=== PATIENT | female | born 1960 | race Caucasian/White ===

== ENCOUNTER 2016-08-27 19:16 | Emergency (ER) | payer BC, OTHER ==
--- NOTE | 2016-08-27 19:45 | EDM.PDOC ---
ED HISTORY OF PRESENT ILLNESS - General Chief Complaint: Cardiovascular Problem Stated Complaint: NAUSEA/HEART MISSING A BEAT Time Seen by Provider: 08/27/16 19:40 Source of Information: Reports: Patient, Family (friend) History Limitations: Reports: No limitations - History of Present Illness INITIAL COMMENTS - FREE TEXT/NARRATIVE: 56-year-old female presents the ED with nonspecific complaints of intermittent nausea and retrosternal chest pressure discomfort since mid afternoon today. The worse with walking. No worse with lying down. No associated burping belching or heartburn. She does have a history of GERD and uses Zantac usually 150 mg once daily. No right upper quadrant abdominal pain. Feels like her heart is skipping beats at times that should make her feel a bit dizzy and funny in the chest. No real worsening of shortness of breath. No cough or sputum production no fever or chills. No trouble swallowing.no recent changes to any medications. Symptom Onset Date: 08/27/16 Symptom Onset Time: 14:00 Timing/Duration: Reports: Hour(s):, Gradual onset, Intermittent, Waxing/waning Severity: mild Location, General: Reports: chest (lower chest and epigastrium.) Quality: Reports: Ache, Pressure (mild pressure), Other (feels like her heart is skipping beats at times.) Improves with: Reports: None Worsens with: Reports: None Context, General: Denies: Activity, Exercise, Lifting, Sick contact, Trauma, Other Associated Symptoms (General): Reports: chest pain, nausea/vomiting. 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 On diet. ) Gastrointestinal History: Reports: GERD (exam check 50 mg once daily.) Genitourinary History: Reports: Renal calculus - Past Surgical History Female Surgical History: Reports: Hysterectomy (ovaries were left in.) Social & Family History - Tobacco Use Smoking Status *Q: Current Every Day Smoker Years of Tobacco use: 30 Packs/Tins Daily: 1 - Alcohol Use Days Per Week of Alcohol Use: 0 - Recreational Drug Use Recreational Drug Use: No - Living Situation & Occupation Occupation: employed ED ROS GENERAL - Review of Systems Review Of Systems: See Below Constitutional: Reports: fatigue. Denies: fever, chills, malaise, weakness, decreased appetite, weight loss HEENT: Reports: No symptoms Respiratory: Reports: cough, sputum (get a minute produced is usually a little brownish in color. No hemoptysis). Denies: shortness of breath, wheezing, pleuritic chest pain Cardiovascular: Reports: Chest pain (lower retrosternal chest pressure discomfort.), Lightheadedness, Palpitations (as like her heart is skipping beats at times today.). Denies: Blood pressure problem, Claudication, Dyspnea on exertion, Edema (filling little dizzy lightheaded today.), Orthopnea Endocrine: Reports: no symptoms GI/Abdominal: Reports: No symptoms : Reports: no symptoms Musculoskeletal: Reports: no symptoms Skin: Reports: no symptoms Neurological: Reports: no symptoms Psychiatric: Reports: No symptoms, Other Immunologic: Reports: no symptoms ED EXAM, GENERAL - Physical Exam Exam: See Below Exam Limited By: No limitations General Appearance: alert, WD/WN, no apparent distress Eye Exam: bilateral eye: normal inspection (no jaundice) Throat/Mouth: Normal inspection, Normal lips, Normal teeth, Normal oropharynx Head: atraumatic, normocephalic Neck: normal inspection, supple, non-tender, full range of motion. No: carotid bruit, lymphadenopathy (L), thyromegaly Respiratory/Chest: no respiratory distress, lungs clear, normal breath sounds, no accessory muscle use, chest non-tender Cardiovascular: normal peripheral pulses, regular rate, rhythm, no edema, no gallop, no murmur, other (monitor reveals sinus rhythm at 78 per minute) Peripheral Pulses: 2+: posterior tibial (L), posterior tibial (R), dorsalis pedis (L), dorsalis pedis (R) GI/Abdominal: normal bowel sounds, no organomegaly, no mass, tender (slight tenderness in the epigastrium and just to the midline at the right costal margin. No true Iqbal's sign). No: distended, guarding, rigid, rebound Back Exam: normal inspection, full range of motion. No: CVA tenderness (L), CVA tenderness (R) Extremities: normal inspection, normal range of motion, non-tender, no pedal edema, normal capillary refill Neurological: alert, oriented, CN II-XII intact, normal cognition, normal gait Psychiatric: normal affect, normal mood Skin Exam: Warm, Dry, Intact, Normal color, No rash EKG INTERPRETATION EKG Date: 08/27/16 Time: 19:50 Rhythm: NSR Rate (beats/min): 74 (occasional PACs.) Endeavor: normal P-wave: enlarged (consider left atrial enlargement.) QRS: normal ST-T: other (mild ST segment depression in lead aVF only. There is a fairly diffuse repolarization pattern.) QT: prolonged (minimally prolonged) Course - Vital Signs Last Recorded V/S: Last Vital Signs Temp 35.7 C 08/27/16 19:31 Pulse 82 08/27/16 21:36 Resp 18 08/27/16 21:36 BP 133/57 L 08/27/16 21:36 Pulse Ox 96 08/27/16 21:36 - Orders/Labs/Meds Orders: Active Orders 24 hr Category Date Time Status EKG 12 Lead [EKG Documentation Completion] [RC] STAT Care 08/27/16 19:57 Active Chest 1V Frontal [CR] Stat Exams 08/27/16 20:09 Taken Labs: Laboratory Tests 08/27/16 08/27/16 08/27/16 Range/Units 20:00 20:21 20:21 WBC 7.47 (3.98-10.04) K/mm3 RBC 5.33 H (3.98-5.22) M/mm3 Hgb 14.2 (11.2-15.7) gm/L Hct 43.7 (34.1-44.9) % MCV 82.0 (79.4-94.8) fl MCH 26.6 (25.6-32.2) pg MCHC 32.5 (32.2-35.5) g/dl RDW Std Deviation 44.0 (36.4-46.3) fL Plt Count 272 (182-369) K/mm3 MPV 10.3 (9.4-12.3) fl Neutrophils % (Manual) 44 (40-60) % Band Neutrophils % 0 (0-10) % Lymphocytes % (Manual) 32 (20-40) % Atypical Lymphs % 8 % Monocytes % (Manual) 7 (2-10) % Eosinophils % (Manual) 8 H (0.7-5.8) % Basophils % (Manual) 0 L (0.1-1.2) Myelocytes % 1 Platelet Estimate Adequate Plt Morphology Comment Normal RBC Morph Comment Normal Sodium 143 (136-145) mEq/L Potassium 3.6 (3.5-5.1) mEq/L Chloride 105 (98-107) mEq/L Carbon Dioxide 27 (21-32) mEq/L Anion Gap 14.6 (5-15) BUN 14 (7-18) mg/dL Creatinine 1.0 (0.55-1.02) mg/dL Est Cr Clr Drug Dosing 63.37 mL/min Estimated GFR (MDRD) 57 (>60) mL/min BUN/Creatinine Ratio 14.0 (14-18) Glucose 110 H (74-106) mg/dL Calcium 9.1 (8.5-10.1) mg/dL Total Bilirubin 0.2 (0.2-1.0) mg/dL AST 13 L (15-37) U/L ALT 25 (14-59) U/L Alkaline Phosphatase 135 H (46-116) U/L CK-MB (CK-2) 0.9 (0-3.6) ng/ml Troponin I < 0.017 (0.00-0.056) ng/mL C-Reactive Protein 1.2 H* (<1.0) mg/dL Total Protein 6.9 (6.4-8.2) g/dl Albumin 3.4 (3.4-5.0) g/dl Globulin 3.5 gm/dL Albumin/Globulin Ratio 1.0 (1-2) Urine Color Light yellow (Yellow) Urine Appearance Clear (Clear) Urine pH 6.5 (5.0-8.0) Ur Specific [place] 1.025 (1.005-1.030) Urine Protein Negative (Negative) Urine Glucose (UA) Negative (Negative) Urine Ketones Negative (Negative) Urine Occult Blood Negative (Negative) Urine Nitrite Negative (Negative) Urine Bilirubin Negative (Negative) Urine Urobilinogen 0.2 (0.2-1.0) Ur Leukocyte Esterase Negative (Negative) Urine RBC Not seen (0-5) /hpf Urine WBC 0-5 (0-5) /hpf Ur Epithelial Cells 0-5 (0-5) /hpf Urine Bacteria Not seen (FEW) /hpf Urine Mucus Not seen (FEW) /hpf - Radiology Interpretation Free Text/Narrative:: 56-year-old female presents to the ED with nonspecific feeling of just not feeling right. She has some mild lower right retrosternal chest pressure discomfort off and on for the rest of the afternoon. Associated intermittent nausea without any vomiting. He relates no pain in the chest. Morbid discomfort. She also feels aware that her heart is skipping at times. Associated perhaps mild dizziness. No burping belching. History of GERD. No data for age. Examination shows mild tenderness in the epigastrium and along the right costal margin medially but no true positive Iqbal sign. Lungs are clear. Heart is sinus without any murmurs. Plan ECG one view chest x-ray routine labs and urinalysis to be done. - Re-Assessments/Exams Free Text/Narrative Re-Assessment/Exam: 08/27/16 20:03ECG reveals sinus rhythm at 74 per minute. There is evidence of left atrial hypertrophy pattern. There is a diffuse early repolarization pattern. There is mild ST segment depression less than 1 mm in aVF only. 08/27/16 20:54chest x-ray isn't is within normal limits. Cardiac silhouette is normal. Is not a full inspiratory view.hematology is back. White count is 7.47 with normal differential. Hemoglobin is 14.2 with hematocrit of 43.7. Platelets 272,000. Urinalysis was normal. Chemistry is pending. Patient continues to have the occasional PAC show up on the monitor. Her regular at 73 per minute. 08/27/16 21:33 chemistry came back and is completely normal as well other than a mildly elevated CRP of 1.2. Patient reassured that occasional PACs can be normal some people have up to 2 or 3000 of these per day. Advise no restrictions in diet or activity. Followup if any other problems occur. Departure - Departure Time of Disposition: 21:28 Disposition: Home, Self-Care 01 Condition: fair Clinical Impression: Palpitations Instructions: Palpitations Referrals: Kathy Dobson MD [Primary Care Provider] - Forms: ED Department Discharge Additional Instructions: Evaluation in a menstruating today carried out due to to feeling of heart skips what or what we call palpitations. Intermittent mild associated nausea but not much her symptoms otherwise. There is no signs of fever and her vital signs were all normal. A chest x-ray done is normal ECG tracing showed the occasional premature atrial contraction which is considered a bit of a nuisance. Means that an extra beat came from the top chamber of the heart outside of the normal pacemaker. This does not mean that there is anything serious wrong with her heart in fact many of us have up to 2000 of these extra beats per day. Lab work done was completely normal in particular markers for heart attack were negative and there was no metabolic or electrolyte abnormalities either. Therefore at this time there is no restrictions in diet or activity. He would need to return to medical care if you felt that this problem was getting worse over the next few weeks but usually they just go away on their own and are considered a bit of a nuisance. Followup if any other problems occur. - My Orders Last 24 Hours: My Active Orders 08/27/16 19:57 EKG 12 Lead [EKG Documentation Completion] [RC] STAT 08/27/16 20:09 Chest 1V Frontal [CR] Stat - Assessment/Plan Last 24 Hours: My Active Orders 08/27/16 19:57 EKG 12 Lead [EKG Documentation Completion] [RC] STAT 08/27/16 20:09 Chest 1V Frontal [CR] Stat
[2016-08-27 21:37] VITALS: BP 133/57
--- NOTE | 2016-08-28 07:36 | CR ---
Chest: Portable view of the chest was obtained. Comparison: Previous chest x-ray of 03/23/09. Heart size and mediastinum are within normal limits for portable technique. Lungs are clear. Bony structures are unremarkable for the patient's age. Impression: 1. Nothing acute is identified on portable chest x-ray. Diagnostic code #1
== END 2016-08-27 21:30 | disposition home or self-care (01) ==
LOC: JD.ED 19:16
DX: R00.2 Palpitations (principal); E78.00 Pure hypercholesterolemia, unspecified; K21.9 Gastro-esophageal reflux disease without esophagitis; F17.200 Nicotine dependence, unspecified, uncomplicated
CPT/HCPCS: 36415; 71010; 71010-26; 80053; 81001; 82553; 84484; 85025; 86140; 93005; 99284; 99285-25

== ENCOUNTER 2017-04-03 22:00 | Emergency (ER) | payer BC ==
[2017-04-03 22:10] VITALS: BP 140/68
[2017-04-03] MEDS ORDERED: Ibuprofen 800 MG Tab PO ONE (22:41)
[2017-04-03] MEDS ORDERED: Orphenadrine 100 MG Tab.ER PO ONE (22:41)
--- NOTE | 2017-04-03 22:55 | EDM.PDOC ---
ED HPI GENERAL MEDICAL PROBLEM - General Chief Complaint: Back Pain or Injury Stated Complaint: BACK WENT OUT Time Seen by Provider: 04/03/17 22:20 Source of Information: Reports: Patient History Limitations: Reports: No Limitations - History of Present Illness INITIAL COMMENTS - FREE TEXT/NARRATIVE: Patient is a 57-year-old female who presents to the ED complaining of right lower back pain. Patient states this past weekend noticed the discomfort. Pain is described as sharp, dull, worsened with movement and palpation. Unclear etiology or precipitating factor. Patient does work at the [employer] that requires heavy lifting. Again pain is isolated with no radiation down her lower extremities. No saddle anesthesia, incontinence to urine or stool. No history of herniated disc or fracture to the low back. No recent fall contributing to this discomfort. Patient has not taken any medications to alleviate the discomfort. Lower Back Pain Score (Numeric/FACES): 6 - Related Data Allergies Allergy/AdvReac Type Severity Reaction Status Date / Time No Known Allergies Allergy Verified 08/27/16 20:15 Home Meds: Home Meds Ranitidine [Zantac] 150 mg PO DAILY 08/27/16 [History] Orphenadrine [Norflex] 100 mg PO BID PRN #20 tab.er 04/03/17 [Rx] Ranitidine HCl [Zantac] 150 mg PO DAILY 04/03/17 [History] Past Medical History HEENT History: Reports: Impaired Vision Gastrointestinal History: Reports: Bowel Obstruction, Chronic Constipation, GERD Social & Family History - Family History Family Medical History: Noncontributory - Tobacco Use Smoking Status *Q: Never Smoker - Caffeine Use Caffeine Use: Reports: None - Recreational Drug Use Recreational Drug Use: No ED ROS GENERAL - Review of Systems Review Of Systems: ROS reveals no pertinent complaints other than HPI. ED EXAM,LOWER BACK PAIN/INJURY - Physical Exam Exam: See Below Exam Limited By: No Limitations General Appearance: Alert, WD/WN, No Apparent Distress Ears: Hearing Grossly Normal Nose: Normal Inspection Throat/Mouth: Normal Voice, No Airway Compromise Neck: Normal Inspection, Supple Respiratory/Chest: No Respiratory Distress, No Accessory Muscle Use Cardiovascular: Normal Peripheral Pulses, Regular Rate, Rhythm Back Exam: Normal Inspection, Decreased Range of Motion (Secondary to pain), Other (Pain noted to the right lower back along the SI joint with no pinpoint tenderness noted. Left and right straight leg raise negative. No sensory/motor deficits distally. Patient was able to get up from the bed on her own accord with some discomfort noted.). No: Paraspinal Tenderness, Vertebral Tenderness Extremities: Normal Range of Motion, Non-Tender, No Pedal Edema Neurological: Alert, Normal Mood/Affect, Normal Dorsiflexion, CN II-XII Intact, Normal Plantar Flexion, Normal Gait, No Motor/Sensory Deficits, Oriented x 3 Psychiatric: Normal Affect, Normal Mood Skin Exam: Warm, Dry, Intact, Normal Color Course - Vital Signs Last Recorded V/S: Last Vital Signs Temp 97.5 F 04/03/17 22:06 Pulse 96 04/03/17 22:06 Resp 16 04/03/17 22:06 BP 140/68 04/03/17 22:06 Pulse Ox 99 04/03/17 22:06 - Orders/Labs/Meds Meds: Medications Discontinued Medications Generic Name Dose Route Start Last Admin Trade Name Freq PRN Reason Stop Dose Admin Ibuprofen 800 mg 04/03/17 22:41 04/03/17 22:53 Motrin PO 04/03/17 22:42 800 mg ONETIME ONE Administration Orphenadrine Citrate 100 mg 04/03/17 22:41 04/03/17 22:53 Norflex PO 04/03/17 22:42 100 mg ONETIME ONE Administration - Re-Assessments/Exams Free Text/Narrative Re-Assessment/Exam: No studies required at this time. Will order Norflex 100 mg by mouth and also ibuprofen 800 mg by mouth. Departure - Departure Time of Disposition: 22:54 Disposition: Home, Self-Care 01 Condition: Fair Clinical Impression: Right-sided low back pain without sciatica Qualifiers: Chronicity: acute Qualified Code(s): M54.5 - Low back pain - Discharge Information Prescriptions: Orphenadrine [Norflex] 100 mg PO BID PRN #20 tab.er PRN Reason: Muscle Spasm Instructions: Back Injury Prevention, [id number], Muscle Strain, [id number] , Back Pain, Adult, [id number], Pain Medicine Instructions, [id number] Referrals: Kathy Dobson MD [Primary Care Provider] - Forms: ED Department Discharge, ED Return to Work/School Form Additional Instructions: As discussed CT have a low back muscle strain that should resolve over the next 1-2 weeks. Treatment is symptomatically her including refraining from any activities that cause worsening pain, alternate heat and ice with gentle massage , ibuprofen and Tylenol and alternate fashion for pain, and Norflex as needed 1 tab twice a day. Do not drive this evening since receiving a sedative medication while in the ED. Do not drive or operate heavy equipment while taking the Norflex. Follow-up with PCP as needed for reevaluation if symptoms do not improve over the next week or 2. Return to the ED for any new or worsening symptoms.
== END 2017-04-03 23:07 | disposition home or self-care (01) ==
LOC: EDSEX 22:00 → MERGE 22:00 → JD.ED 22:00
DX: M54.5 Low back pain (principal); K21.9 Gastro-esophageal reflux disease without esophagitis; Z79.899 Other long term (current) drug therapy
CPT/HCPCS: 99283; A9270

== ENCOUNTER 2019-03-14 17:12 | Emergency (ER) | payer BC ==
[2019-03-14 17:25] VITALS: BP 133/63; PULSE 90
--- NOTE | 2019-03-14 18:07 | EDM.PDOC ---
ED HPI GENERAL MEDICAL PROBLEM - General Chief Complaint: Genitourinary Problem Stated Complaint: PAINFUL URINATION Time Seen by Provider: 03/14/19 18:00 Source of Information: Reports: Patient History Limitations: Reports: No Limitations - History of Present Illness INITIAL COMMENTS - FREE TEXT/NARRATIVE: 59-year-old female presents for evaluation and treatment of dysuria. Reports reports symptoms for the last 3 days. Currently complains of pelvic pain, low back pain with the left being worse than the right and dysuria. Reports that her urine is more concentrated. Unsure if there is blood in there. She denies any fevers, chills, nausea or vomiting. 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: Reports: Other (See Below) Other REHABILITATION SERVICES DIRECTOR History: hysterectomy - Past Surgical History Female Surgical History: Reports: Hysterectomy (ovaries were left in.) Social & Family History - Family History Family Medical History: Noncontributory - Tobacco Use Smoking Status *Q: Current Every Day Smoker Years of Tobacco use: 40 Packs/Tins Daily: 1 - Caffeine Use Caffeine Use: Reports: Coffee - Recreational Drug Use Recreational Drug Use: No - Living Situation & Occupation Occupation: Employed ED ROS GENERAL - Review of Systems Review Of Systems: See Below Constitutional: Denies: Fever, Chills GI/Abdominal: Denies: Abdominal Pain, Nausea, Vomiting : Reports: Dysuria, Pain (suprapubic and pelvic). Denies: Hematuria Musculoskeletal: Reports: Back Pain (L>>R) ED EXAM, RENAL/ - Physical Exam Exam: See Below Exam Limited By: No Limitations General Appearance: Alert, WD/WN, No Apparent Distress Respiratory/Chest: No Respiratory Distress, Lungs Clear, Normal Breath Sounds Cardiovascular: Normal Peripheral Pulses, Regular Rate, Rhythm, No Murmur Back Exam: Normal Inspection. No: CVA Tenderness (L), CVA Tenderness (R) Neurological: Alert, Oriented, Normal Cognition Psychiatric: Normal Affect, Normal Mood Skin Exam: Warm, Dry, Normal Color Course - Vital Signs Last Recorded V/S: Last Vital Signs Temp 96.4 F 03/14/19 17:21 Pulse 90 03/14/19 17:21 Resp 15 03/14/19 17:21 BP 133/63 03/14/19 17:21 Pulse Ox 98 03/14/19 17:21 - Orders/Labs/Meds Labs: Laboratory Tests 03/14/19 Range/Units 17:21 Urine Color Yellow (Yellow) Urine Appearance Cloudy H (Clear) Urine pH 6.0 (5.0-8.0) Ur Specific [place] > or = 1.030 (1.005-1.030) Urine Protein 1+ H (Negative) Urine Glucose (UA) Negative (Negative) Urine Ketones Trace H (Negative) Urine Occult Blood 3+ H (Negative) Urine Nitrite Negative (Negative) Urine Bilirubin 1+ H (Negative) Urine Urobilinogen 1.0 (0.2-1.0) Ur Leukocyte Esterase Negative (Negative) Urine RBC >100 H (0-5) /hpf Urine WBC 0-5 (0-5) /hpf Ur Squamous Epith Cells 0-5 (0-5) /hpf Urine Bacteria Moderate H (FEW) /hpf Urine Mucus Few (FEW) /hpf Departure - Departure Time of Disposition: 18:17 Disposition: Home, Self-Care 01 Condition: Good Clinical Impression: UTI (urinary tract infection) - Discharge Information *PRESCRIPTION DRUG MONITORING PROGRAM REVIEWED*: No *COPY OF PRESCRIPTION DRUG MONITORING REPORT IN PATIENT DENY: No Prescriptions: Nitrofurantoin Monohyd/M-Cryst [Macrobid 100 mg Capsule] 100 mg PO BID #14 capsule Instructions: Urinary Tract Infection, Adult, [id number] Referrals: Kathy Dobson MD [Primary Care Provider] - Forms: ED Department Discharge Additional Instructions: Take the Macrobid one cap Twice a day for 7 days. Make sure you are drinking plenty of fluids. Over-the Azo as needed for dysuria. Follow up with your primary care provider as needed. Please return to ER if your symptoms change or worsen.
== END 2019-03-14 18:32 | disposition home or self-care (01) ==
LOC: JD.ED 17:12
DX: N39.0 Urinary tract infection, site not specified (principal); K21.9 Gastro-esophageal reflux disease without esophagitis; F17.210 Nicotine dependence, cigarettes, uncomplicated; Z79.899 Other long term (current) drug therapy; Z90.710 Acquired absence of both cervix and uterus
CPT/HCPCS: 81001; 87086; 99283

== ENCOUNTER 2019-03-26 16:23 | Emergency (ER) | payer BC ==
[2019-03-26 16:37] VITALS: BP 125/68; PULSE 80
[2019-03-26] MEDS ORDERED: FLU Vacc QS2019-20(6MOS+)/PF 60 MCG/0.5 ML SYRINGE IM ONE (16:45)
[2019-03-26] MEDS ORDERED: diphenhydrAMINE 25 MG Cap PO ONE (16:59)
--- NOTE | 2019-03-26 17:13 | EDM.PDOC ---
ED HPI GENERAL MEDICAL PROBLEM - General Chief Complaint: Skin Complaint Stated Complaint: SKIN COMPLAINT Time Seen by Provider: 03/26/19 16:35 Source of Information: Reports: Patient, RN Notes Reviewed History Limitations: Reports: No Limitations - History of Present Illness INITIAL COMMENTS - FREE TEXT/NARRATIVE: Patient is a 59-year-old female who presents to the ED for the evaluation of skin itching. The patient states that she has generalized itchiness all over her body, she does not have any sort of hives or welts noted. She states that after she itches however some of the areas become reddened, but it is not raised. The patient has never experienced this type of itchiness before, she states that she was on a seven-day course of nitrofurantoin 100 mg twice a day for a urinary tract infection that she was seen in this ER for, she finished this on 927. She has had the itching since then so roughly 5 days. She does not remember changing anything else into her normal routine, soaps detergents or otherwise that would've caused an issue. She denies any sort of shortness of breath, or feelings of her throat swelling shut. She has been trying some cortisone cream at home and this helps mildly but does not provide much relief at all. She has not taken any Benadryl for management of this. She denies any fevers or chills, chest pain, shortness of breath. Her primary care provider is Dr. Presley. 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 - Past Surgical History Female Surgical History: Reports: Hysterectomy Social & Family History - Family History Family Medical History: Noncontributory - Tobacco Use Smoking Status *Q: Current Every Day Smoker Years of Tobacco use: 30 Packs/Tins Daily: 1 - Caffeine Use Caffeine Use: Reports: Coffee - Recreational Drug Use Recreational Drug Use: No - Living Situation & Occupation Occupation: Employed ED ROS GENERAL - Review of Systems Review Of Systems: See Below Constitutional: Denies: Fever, Chills HEENT: Reports: No Symptoms Respiratory: Reports: No Symptoms Cardiovascular: Reports: No Symptoms Endocrine: Reports: No Symptoms GI/Abdominal: Reports: No Symptoms : Reports: No Symptoms Musculoskeletal: Reports: No Symptoms Skin: Reports: Pruritis (generalized), Erythema (only after patient scratches area.) Neurological: Reports: No Symptoms Psychiatric: Reports: No Symptoms Hematologic/Lymphatic: Reports: No Symptoms Immunologic: Reports: No Symptoms ED EXAM, SKIN/RASH Exam: See Below Exam Limited By: No Limitations General Appearance: Alert, WD/WN, No Apparent Distress Throat/Mouth: Normal Inspection, Normal Lips, Normal Teeth, Normal Gums, Normal Oropharynx, Normal Voice, No Airway Compromise Head: Atraumatic, Normocephalic Neck: Normal Inspection Respiratory/Chest: No Respiratory Distress, Lungs Clear, Normal Breath Sounds, No Accessory Muscle Use, Chest Non-Tender Cardiovascular: Normal Peripheral Pulses, Regular Rate, Rhythm, No Murmur GI/Abdominal: Normal Bowel Sounds, Soft, Non-Tender, No Distention, No Mass Back Exam: Normal Inspection, Full Range of Motion. No: CVA Tenderness (L), CVA Tenderness (R) Extremities: Normal Inspection, Normal Range of Motion, Normal Capillary Refill Neurological: Alert, Oriented, Normal Cognition, No Motor/Sensory Deficits Psychiatric: Normal Affect, Normal Mood Skin: Warm, Dry, Intact, Normal Color, No Rash, Erythema (one area on R proximal lateral calf, she states that she just got done itching this area.) Location, Skin: Generalized Associated features: No: Warmth, Scaling, Inflammation Course - Vital Signs Last Recorded V/S: Last Vital Signs Temp 96.8 F 03/26/19 16:34 Pulse 80 03/26/19 16:34 Resp 18 03/26/19 16:34 BP 125/68 03/26/19 16:34 Pulse Ox 98 03/26/19 16:34 - Orders/Labs/Meds Orders: Active Orders 24 hr Category Date Time Status Influenza Vaccine Charge [RC] .DISCHARGE Care 03/26/19 16:41 Active CULTURE URINE [RM] Routine Lab 03/26/19 18:30 Ordered Labs: Laboratory Tests 03/26/19 03/26/19 03/26/19 Range/Units 17:00 17:23 17:23 WBC 8.64 (3.98-10.04) K/mm3 RBC 5.59 H (3.98-5.22) M/mm3 Hgb 15.4 (11.2-15.7) gm/dl Hct 45.2 H (34.1-44.9) % MCV 80.9 (79.4-94.8) fl MCH 27.5 (25.6-32.2) pg MCHC 34.1 (32.2-35.5) g/dl RDW Std Deviation 44.4 (36.4-46.3) fL Plt Count 274 (182-369) K/mm3 MPV 10.1 (9.4-12.3) fl Neutrophils % (Manual) 61 H (40-60) % Band Neutrophils % 0 (0-10) % Lymphocytes % (Manual) 35 (20-40) % Atypical Lymphs % 0 % Monocytes % (Manual) 2 (2-10) % Eosinophils % (Manual) 1 (0.7-5.8) % Basophils % (Manual) 1 (0.1-1.2) Platelet Estimate Adequate RBC Morph Comment Normal Sodium 138 (136-145) mEq/L Potassium 4.1 (3.5-5.1) mEq/L Chloride 101 (98-107) mEq/L Carbon Dioxide 27 (21-32) mEq/L Anion Gap 14.1 (5-15) BUN 23 H (7-18) mg/dL Creatinine 1.0 (0.55-1.02) mg/dL Est Cr Clr Drug Dosing 61.10 mL/min Estimated GFR (MDRD) 57 (>60) mL/min BUN/Creatinine Ratio 23.0 H (14-18) Glucose 91 (74-106) mg/dL Calcium 9.1 (8.5-10.1) mg/dL Total Bilirubin 0.4 (0.2-1.0) mg/dL AST 15 (15-37) U/L ALT 22 (14-59) U/L Alkaline Phosphatase 120 H (46-116) U/L Total Protein 7.0 (6.4-8.2) g/dl Albumin 3.6 (3.4-5.0) g/dl Globulin 3.4 gm/dL Albumin/Globulin Ratio 1.1 (1-2) Urine Color Yellow (Yellow) Urine Appearance Clear (Clear) Urine pH 6.0 (5.0-8.0) Ur Specific [place] > or = 1.030 (1.005-1.030) Urine Protein Negative (Negative) Urine Glucose (UA) Negative (Negative) Urine Ketones Negative (Negative) Urine Occult Blood Trace-intact H (Negative) Urine Nitrite Negative (Negative) Urine Bilirubin Negative (Negative) Urine Urobilinogen 0.2 (0.2-1.0) Ur Leukocyte Esterase Negative (Negative) Urine RBC 5-10 H (0-5) /hpf Urine WBC 0-5 (0-5) /hpf Ur Squamous Epith Cells 5-10 H (0-5) /hpf Urine Bacteria Few (FEW) /hpf Urine Mucus Moderate H (FEW) /hpf Meds: Medications Discontinued Medications Generic Name Dose Route Start Last Admin Trade Name Freq PRN Reason Stop Dose Admin Diphenhydramine HCl 25 mg 03/26/19 16:59 03/26/19 17:07 Benadryl PO 03/26/19 17:00 25 mg ONETIME ONE Administration Influenza Virus Vaccine 1 each 03/26/19 16:41 Pharmacy To Dose - Influenza Vaccine IM 03/26/19 16:42 ONETIME ONE Influenza Virus Vaccine 60 mcg 03/26/19 16:45 03/26/19 17:00 Fluzone Quad [id number] Syringe IM 03/26/19 16:46 60 mcg .ONCE ONE Administration - Re-Assessments/Exams Free Text/Narrative Re-Assessment/Exam: 03/26/19 17:14 Patient presents to the ED for the evaluation of generalized itchiness. Pruritis can be a side effect of Nitrofurantoin, but she has been off of this for 5 days. I did order CBC, CMP, and a UA to make sure that her UTI has resolved itself. She states that she is not having symptoms any longer. I did order 25mg Benadryl for initial relief. Departure - Departure Time of Disposition: 18:31 Disposition: Home, Self-Care 01 Condition: Fair Clinical Impression: Generalized pruritus - Discharge Information *PRESCRIPTION DRUG MONITORING PROGRAM REVIEWED*: No *COPY OF PRESCRIPTION DRUG MONITORING REPORT IN PATIENT DENY: No Instructions: Pruritus Referrals: Kathy Dobson MD [Primary Care Provider] - Forms: ED Department Discharge Additional Instructions: You were evaluated in the ED for your generalized itchiness. Your laboratory evaluation was within normal limits. There is not a clear metabolic cause that can explain your itching. This may likely be a side effect of the nitrofurantoin that you finished. You were given a script for prednisone, please take as directed. You may find further itch relief by taking generic Pepcid (famotidine) daily for a week, also benadryl at night if it is too sedating during the day. Please return to the ED if your symptoms change or worsen. - My Orders Last 24 Hours: My Active Orders 03/26/19 16:41 Influenza Vaccine Charge [RC] .DISCHARGE 03/26/19 18:30 CULTURE URINE [RM] Routine - Assessment/Plan Last 24 Hours: My Active Orders 03/26/19 16:41 Influenza Vaccine Charge [RC] .DISCHARGE 03/26/19 18:30 CULTURE URINE [RM] Routine
[2019-03-26] MEDS ORDERED: Zolpidem 5 MG Tab PO ONE (18:44)
== END 2019-03-26 18:59 | disposition home or self-care (01) ==
LOC: JD.ED 16:23
DX: L29.9 Pruritus, unspecified (principal); K21.9 Gastro-esophageal reflux disease without esophagitis; F17.210 Nicotine dependence, cigarettes, uncomplicated; Z79.899 Other long term (current) drug therapy; Z23 Encounter for immunization
CPT/HCPCS: 36415; 80053; 81001; 85007; 85027; 87086; 90471; 90686; 99283; A9270; 99282; G0008

== ENCOUNTER 2020-02-18 06:21 | Emergency (ER) | payer BC ==
[2020-02-18 06:42] VITALS: BP 136/64; PULSE 76
--- NOTE | 2020-02-18 07:17 | EDM.PDOC ---
ED HPI GENERAL MEDICAL PROBLEM - General Chief Complaint: Genitourinary Problem Stated Complaint: FREQUENT URINATION/PAIN Time Seen by Provider: 02/18/20 06:53 Source of Information: Reports: Patient History Limitations: Reports: No Limitations - History of Present Illness INITIAL COMMENTS - FREE TEXT/NARRATIVE: The patient presents with urinary frequency for a couple of days. She has no dysuria. She has some mild lower abdominal pain. She has no fever or chills. She has a history of UTIs. Onset: Gradual Duration: Day(s): Severity: Moderate Improves with: Reports: None Worsens with: Reports: None Associated Symptoms: Denies: Chest Pain, Cough, Fever/Chills, Headaches, Nausea/Vomiting, Shortness of Breath Bladder Pain Score (Numeric/FACES): 5 - Related Data Allergies Allergy/AdvReac Type Severity Reaction Status Date / Time No Known Allergies Allergy Verified 02/18/20 06:42 Home Meds: Home Meds Ranitidine HCl [Zantac] 150 mg PO DAILY 04/03/17 [History] predniSONE [Deltasone] 20 mg PO ASDIRECTED #15 tablet 03/26/19 [Rx] cephALEXin [Keflex] 500 mg PO BID #10 capsule 02/18/20 [Rx] Past Medical History HEENT History: Reports: Impaired Vision Cardiovascular History: Reports: High Cholesterol Gastrointestinal History: Reports: Bowel Obstruction, Chronic Constipation, GERD Genitourinary History: Reports: Renal Calculus 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 - Past Surgical History Female Surgical History: Reports: Hysterectomy Social & Family History - Family History Family Medical History: Noncontributory - Tobacco Use Smoking Status *Q: Current Every Day Smoker Years of Tobacco use: 30 Packs/Tins Daily: 0.5 - Caffeine Use Caffeine Use: Reports: Coffee - Living Situation & Occupation Occupation: Employed ED ROS GENERAL - Review of Systems Review Of Systems: See Below Constitutional: Reports: No Symptoms HEENT: Reports: No Symptoms Respiratory: Reports: No Symptoms Cardiovascular: Reports: No Symptoms Endocrine: Reports: No Symptoms GI/Abdominal: Reports: No Symptoms : Reports: Frequency. Denies: Dysuria Musculoskeletal: Reports: No Symptoms ED EXAM, RENAL/ - Physical Exam Exam: See Below Exam Limited By: No Limitations General Appearance: Alert, No Apparent Distress Ears: Normal External Exam Nose: Normal Inspection Head: Atraumatic, Normocephalic Neck: Normal Inspection Respiratory/Chest: No Respiratory Distress, Lungs Clear, Normal Breath Sounds Cardiovascular: Regular Rate, Rhythm, No Edema, No Murmur GI/Abdominal: Soft, Non-Tender, No Organomegaly, No Mass Back Exam: Normal Inspection Extremities: Normal Inspection Course - Vital Signs Last Recorded V/S: Last Vital Signs Temp 97.1 F 02/18/20 06:38 Pulse 76 02/18/20 06:38 Resp 18 02/18/20 06:38 BP 136/64 02/18/20 06:38 Pulse Ox 96 02/18/20 06:38 - Orders/Labs/Meds Orders: Active Orders 24 hr Category Date Time Status UA W/MICROSCOPIC [URIN] Stat Lab 02/18/20 06:44 Results cephALEXin [Keflex] Med 02/18/20 07:19 Once 500 mg PO ONETIME ONE Labs: Laboratory Tests 02/18/20 Range/Units 06:44 Urine Color Yellow (Yellow) Urine Appearance Slt cloudy H (Clear) Urine pH 6.5 (5.0-8.0) Ur Specific [place] 1.020 (1.005-1.030) Urine Protein Negative (Negative) Urine Glucose (UA) Negative (Negative) Urine Ketones Negative (Negative) Urine Occult Blood 2+ H (Negative) Urine Nitrite Negative (Negative) Urine Bilirubin Negative (Negative) Urine Urobilinogen 1.0 (0.2-1.0) Ur Leukocyte Esterase 2+ H (Negative) - Re-Assessments/Exams Free Text/Narrative Re-Assessment/Exam: 02/18/20 07:17 I ordered a UA and it shows a UTI. 02/18/20 07:20 I will get her a prescription for keflex and a prescription for more. Departure - Departure Time of Disposition: 07:20 Disposition: Home, Self-Care 01 Condition: Good Clinical Impression: UTI, Urinary tract infectious disease - Discharge Information *PRESCRIPTION DRUG MONITORING PROGRAM REVIEWED*: Not Applicable *COPY OF PRESCRIPTION DRUG MONITORING REPORT IN PATIENT DENY: Not Applicable Prescriptions: cephALEXin [Keflex] 500 mg PO BID #10 capsule Referrals: Kathy Dobson MD [Primary Care Provider] - 1 Week Forms: ED Department Discharge Additional Instructions: Drink plenty of fluids. Take the keflex 2 times per day for 5 days. Follow up with your doctor if you are not better. Please return if you are worse. Sepsis Event Note (ED) - Evaluation Sepsis Screening Result: No Definite Risk - Focused Exam Vital Signs: Vital Signs Temp Pulse Resp BP Pulse Ox 02/18/20 06:38 97.1 F 76 18 136/64 96 - My Orders Last 24 Hours: My Active Orders 02/18/20 06:44 UA W/MICROSCOPIC [URIN] Stat 02/18/20 07:19 cephALEXin [Keflex] 500 mg PO ONETIME ONE - Assessment/Plan Last 24 Hours: My Active Orders 02/18/20 06:44 UA W/MICROSCOPIC [URIN] Stat 02/18/20 07:19 cephALEXin [Keflex] 500 mg PO ONETIME ONE
[2020-02-18] MEDS ORDERED: Cephalexin 500 MG Cap PO ONE (07:19)
== END 2020-02-18 07:40 | disposition home or self-care (01) ==
LOC: JD.ED 06:21
DX: N39.0 Urinary tract infection, site not specified (principal); K21.9 Gastro-esophageal reflux disease without esophagitis; F17.210 Nicotine dependence, cigarettes, uncomplicated; Z90.710 Acquired absence of both cervix and uterus; Z79.899 Other long term (current) drug therapy
CPT/HCPCS: 81001; 99284; A9270

== ENCOUNTER 2020-02-19 10:33 | Emergency (ER) | payer BC ==
[2020-02-19 11:08] VITALS: BP 141/79; PULSE 72
[2020-02-19] MEDS ORDERED: diphenhydrAMINE 25 MG Cap PO ONE (11:56)
[2020-02-19] MEDS ORDERED: Famotidine 20 MG Tab PO ONE (11:56)
--- NOTE | 2020-02-19 12:46 | EDM.PDOC ---
ED HPI GENERAL MEDICAL PROBLEM - General Chief Complaint: Allergic Reaction Stated Complaint: ALLERGIC RX Time Seen by Provider: 02/19/20 11:30 - History of Present Illness INITIAL COMMENTS - FREE TEXT/NARRATIVE: 59-year-old female presents the emergency room with a suspected allergic reaction. Patient was seen here yesterday started on cephalexin for a UTI. Today she has noticed some tightness in her throat no shortness of breath or breathing difficulty. She states he just does not feel right. She has no itching or other complaints. She has no burning sensation in the back of her throat. She has a history of stomach trouble and takes Prilosec for this. Patient denies any other complaints at this time. She has not had any recent fevers breathing difficulties shortness of breath or loss are diminished taste or smell sensation. Throat Pain Score (Numeric/FACES): 4 - Related Data Allergies Allergy/AdvReac Type Severity Reaction Status Date / Time No Known Allergies Allergy Verified 02/18/20 06:42 Home Meds: Home Meds cephALEXin [Keflex] 500 mg PO BID #10 capsule 02/18/20 [Rx] Ciprofloxacin HCl [Cipro] 500 mg PO Q12H #14 tablet 02/19/20 [Rx] predniSONE 20 mg PO Q24H #6 tab 02/19/20 [Rx] Past Medical History HEENT History: Reports: Impaired Vision Cardiovascular History: Reports: High Cholesterol Gastrointestinal History: Reports: Bowel Obstruction, Chronic Constipation, GERD Genitourinary History: Reports: Renal Calculus 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 Denies: No Symptoms Respiratory: Reports: No Symptoms Cardiovascular: Reports: No Symptoms Endocrine: Reports: No Symptoms GI/Abdominal: Reports: No Symptoms : Reports: No Symptoms Musculoskeletal: Reports: No Symptoms Skin: Reports: No Symptoms Neurological: Reports: No Symptoms Psychiatric: Reports: No Symptoms Immunologic: Reports: No Symptoms ED EXAM GENERAL NO PERIP PULSE - Physical Exam Exam: See Below Exam Limited By: No Limitations General Appearance: Alert, No Apparent Distress Eye Exam: Bilateral Eye: Normal Inspection Throat/Mouth: Normal Inspection, Normal Lips, Normal Teeth, Normal Gums, Normal Oropharynx, Normal Voice, No Airway Compromise Head: Atraumatic, Normocephalic Neck: Normal Inspection, Other (Fairly normal exam). No: Lymphadenopathy (L), Lymphadenopathy (R), Tender Lateral, Tender Midline, Thyromegaly Respiratory/Chest: No Respiratory Distress, Lungs Clear, Normal Breath Sounds Cardiovascular: Regular Rate, Rhythm, No Edema, No Murmur GI/Abdominal: Normal Bowel Sounds, Soft, Non-Tender Back Exam: Normal Inspection. No: CVA Tenderness (L), CVA Tenderness (R) Skin Exam: Warm, Dry, Intact, No Rash Course - Vital Signs Last Recorded V/S: Last Vital Signs Temp 35.4 C L 02/19/20 11:02 Pulse 72 02/19/20 11:02 Resp 14 02/19/20 11:02 BP 141/79 H 02/19/20 11:02 Pulse Ox 95 02/19/20 11:02 - Orders/Labs/Meds Meds: Medications Discontinued Medications Generic Name Dose Route Start Last Admin Trade Name Sheila PRN Reason Stop Dose Admin Diphenhydramine HCl 25 mg 02/19/20 11:56 02/19/20 12:14 Benadryl PO 02/19/20 11:57 25 mg ONETIME ONE Administration Famotidine 40 mg 02/19/20 11:56 02/19/20 12:14 Pepcid PO 02/19/20 11:57 40 mg ONETIME ONE Administration - Re-Assessments/Exams Free Text/Narrative Re-Assessment/Exam: 02/19/20 13:03 Patient starting get some improvement after initial dose of famotidine and Benadryl. Discussed the pros and cons of prednisone and she would like to give it a 3-day try we will send her prescription in for this. The patient be started on Cipro 500 twice daily for 7 days. And prednisone 40 mg daily for 3 days. I did discuss with the patient the risk of tendon rupture with Cipro and she understands this and I also informed her that the prednisone could potentially make this worse and she understands this to the patient will not do any heavy lifting or exertional activities while taking these medications. Departure - Departure Time of Disposition: 13:05 Disposition: Home, Self-Care 01 Clinical Impression: Allergic reaction caused by a drug - Discharge Information Referrals: Kathy Dobson MD [Primary Care Provider] - Forms: ED Department Discharge Additional Instructions: Return to the emergency room with any questions problems or worsening symptoms. You have been started on ciprofloxacin this is an antibiotic take it twice daily and do not take the cephalexin, or Keflex again. Use famotidine [id number] 20 mg, 1 tablet, twice daily for 7 days. Use Benadryl 25 mg for the rest of today every 6 hours. Starting tomorrow use it only if needed. Follow-up with your regular physician early next week for recheck. Sepsis Event Note (ED) - Evaluation Sepsis Screening Result: No Definite Risk - Focused Exam Vital Signs: Vital Signs Temp Pulse Resp BP Pulse Ox 02/19/20 11:02 35.4 C L 72 14 141/79 H 95
== END 2020-02-19 13:50 | disposition home or self-care (01) ==
LOC: JD.ED 10:33
DX: J39.2 Other diseases of pharynx (principal); F17.210 Nicotine dependence, cigarettes, uncomplicated; T36.1X5A Adverse effect of cephalosporins and other beta-lactam antibiotics, initial encounter
CPT/HCPCS: 99283; A9270

== ENCOUNTER 2021-03-24 14:39 | Emergency (ER) | payer BC ==
[2021-03-24 14:54] VITALS: BP 156/63; PULSE 73
[2021-03-24] MEDS ORDERED: Sodium Chloride 0.9% 10 ML Syringe FLUSH PRN (14:58)
[2021-03-24] MEDS ORDERED: Ketorolac 30 MG/ML SDV IVPUSH ONE (15:08)
[2021-03-24] MEDS ORDERED: Ondansetron 4 MG/2 ML SDV IVPUSH ONE (15:08)
[2021-03-24] MEDS ORDERED: HYDROmorphone 0.5 MG/0.5 ML Syringe IVPUSH ONE (15:08)
[2021-03-24] MEDS ORDERED: Sodium Chloride 0.9% 1,000 ML IV STA (15:08)
--- NOTE | 2021-03-24 15:23 | EDM.PDOC ---
ED HPI GENERAL MEDICAL PROBLEM - General Chief Complaint: Flank Pain Stated Complaint: BACK PAIN AND SIDE PAIN Time Seen by Provider: 03/24/21 14:55 Source of Information: Reports: Patient, RN Notes Reviewed History Limitations: Reports: No Limitations - History of Present Illness INITIAL COMMENTS - FREE TEXT/NARRATIVE: Patient is a 61-year-old female presenting to the emergency department with complaints of right-sided flank pain with radiation into her right side. Symptoms began this morning but were fairly mild, they have intensified throughout the day. Reports vomiting. She does have urinary frequency but denies any dysuria or hematuria. Reports he does have a history of kidney stones as well as urinary tract infections. Denies any fever or chills. Right Flank Pain Score (Numeric/FACES): 8 - Related Data Allergies Allergy/AdvReac Type Severity Reaction Status Date / Time No Known Allergies Allergy Verified 03/24/21 21:00 Home Meds: Home Meds predniSONE 20 mg PO Q24H #6 tab 02/19/20 [Rx] Hydrocodone/Acetaminophen [Hydrocodone-Acetamin 5-325 mg] 1 each PO Q4H PRN #12 tablet 03/24/21 [Rx] Ondansetron [Zofran ODT] 4 mg PO Q6H PRN #10 tab.dis 03/24/21 [Rx] Tamsulosin [Tamsulosin 24 Hr] 0.4 mg PO DAILY #30 cap.er 03/24/21 [Rx] Past Medical History HEENT History: Reports: Impaired Vision Cardiovascular History: Reports: High Cholesterol Gastrointestinal History: Reports: Bowel Obstruction, Chronic Constipation, GERD Genitourinary History: Reports: Renal Calculus 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 (See Below) Other IMPORT/EXPORT 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 History: hysterectomy Endocrine/Metabolic History: Reports: Obesity/BMI 30+ - Past Surgical History Female Surgical History: Reports: Hysterectomy Social & Family History - Family History Family Medical History: No Pertinent Family History - Tobacco Use Tobacco Use Status *Q: Current Every Day Tobacco User Years of Tobacco use: 30 Packs/Tins Daily: 0.5 - Caffeine Use Caffeine Use: Reports: Coffee - Recreational Drug Use Recreational Drug Use: No - Living Situation & Occupation Occupation: Employed ED ROS GENERAL - Review of Systems Review Of Systems: Comprehensive ROS is negative, except as noted in HPI. ED EXAM, RENAL/ - Physical Exam Exam: See Below Exam Limited By: No Limitations General Appearance: Alert, WD/WN, No Apparent Distress Respiratory/Chest: No Respiratory Distress, Lungs Clear, Normal Breath Sounds, No Accessory Muscle Use, Chest Non-Tender Cardiovascular: Normal Peripheral Pulses, Regular Rate, Rhythm, No Edema, No Gallop, No JVD, No Murmur, No Rub GI/Abdominal: Normal Bowel Sounds, Soft, Non-Tender, No Organomegaly, No Distention, No Abnormal Bruit, No Mass Back Exam: Normal Inspection, Full Range of Motion, CVA Tenderness (R). No: CVA Tenderness (L) Neurological: Alert, Oriented, CN II-XII Intact, Normal Cognition, Normal Gait, Normal Reflexes, No Motor/Sensory Deficits Psychiatric: Normal Affect, Normal Mood Skin Exam: Warm, Dry, Intact, Normal Color, No Rash Course - Vital Signs Last Recorded V/S: Last Vital Signs Temp 97.5 F 03/24/21 14:48 Pulse 73 03/24/21 14:48 Resp 16 03/24/21 14:48 BP 156/63 H 03/24/21 14:48 Pulse Ox 98 03/24/21 14:48 - Orders/Labs/Meds Orders: Active Orders 24 hr Category Date Time Status Peripheral IV Insertion Adult [OM.PC] Stat Oth 03/24/21 14:58 Ordered Labs: Laboratory Tests 03/24/21 03/24/21 03/24/21 Range/Units 14:48 15:10 15:10 WBC 9.05 (3.98-10.04) K/mm3 RBC 5.52 H (3.98-5.22) M/mm3 Hgb 14.4 (11.2-15.7) gm/dl Hct 44.6 (34.1-44.9) % MCV 80.8 (79.4-94.8) fl MCH 26.1 (25.6-32.2) pg MCHC 32.3 (32.2-35.5) g/dl RDW Std Deviation 43.6 (36.4-46.3) fL Plt Count 276 (182-369) K/mm3 MPV 10.0 (9.4-12.3) fl Neut % (Auto) 73.8 H (34.0-71.1) % Lymph % (Auto) 16.9 L (19.3-51.7) % [place]ander % (Auto) 7.4 (4.7-12.5) % Eos % (Auto) 1.4 (0.7-5.8) Baso % (Auto) 0.2 (0.1-1.2) % Neut # (Auto) 6.67 H (1.56-6.13) K/mm3 Lymph # (Auto) 1.53 (1.18-3.74) K/mm3 Lander # (Auto) 0.67 H (0.24-0.36) K/mm3 Eos # (Auto) 0.13 (0.04-0.36) K/mm3 Baso # (Auto) 0.02 (0.01-0.08) K/mm3 Sodium 141 (136-145) mEq/L Potassium 3.9 (3.5-5.1) mEq/L Chloride 105 (98-107) mEq/L Carbon Dioxide 26 (21-32) mEq/L Anion Gap 13.9 (5-15) BUN 22 H (7-18) mg/dL Creatinine 1.3 H (0.55-1.02) mg/dL Est Cr Clr Drug Dosing 45.84 mL/min Estimated GFR (MDRD) 42 (>60) mL/min BUN/Creatinine Ratio 16.9 (14-18) Glucose 139 H (70-99) mg/dL Calcium 8.7 (8.5-10.1) mg/dL Total Bilirubin 0.5 (0.2-1.0) mg/dL AST 16 (15-37) U/L ALT 28 (14-59) U/L Alkaline Phosphatase 121 H (46-116) U/L C-Reactive Protein 1.6 H* (<1.0) mg/dL Total Protein 7.2 (6.4-8.2) g/dl Albumin 3.6 (3.4-5.0) g/dl Globulin 3.6 gm/dL Albumin/Globulin Ratio 1.0 (1-2) Urine Color Yellow (Yellow) Urine Appearance Slt cloudy H (Clear) Urine pH 5.5 (5.0-8.0) Ur Specific [place] > or = 1.030 (1.005-1.030) Urine Protein 1+ H (Negative) Urine Glucose (UA) Negative (Negative) Urine Ketones Negative (Negative) Urine Occult Blood 3+ H (Negative) Urine Nitrite Negative (Negative) Urine Bilirubin 1+ H (Negative) Urine Urobilinogen 0.2 (0.2-1.0) Ur Leukocyte Esterase Negative (Negative) Urine RBC 50-75 H (0-5) /hpf Urine WBC 0-5 (0-5) /hpf Ur Squamous Epith Cells 5-10 H (0-5) /hpf Amorphous Sediment Few H (NOT SEEN) /hpf Urine Bacteria Few (FEW) /hpf Urine Mucus Few (FEW) /hpf Meds: Medications Discontinued Medications Generic Name Dose Route Start Last Admin Trade Name Freq PRN Reason Stop Dose Admin Hydromorphone HCl 0.5 mg 03/24/21 15:08 03/24/21 15:37 Hydromorphone 0.5 Mg/0.5 Ml Syringe IVPUSH 03/24/21 15:09 0.5 mg ONETIME ONE Administration Sodium Chloride 1,000 mls @ 150 mls/hr 03/24/21 15:08 03/24/21 15:34 Normal Saline IV 03/24/21 21:47 150 mls/hr NOW STA Administration Ketorolac Tromethamine 30 mg 03/24/21 15:08 03/24/21 15:35 Ketorolac 30 Mg/Ml Sdv IVPUSH 03/24/21 15:09 30 mg ONETIME ONE Administration Ondansetron HCl 4 mg 03/24/21 15:08 03/24/21 15:36 Ondansetron 4 Mg/2 Ml Sdv IVPUSH 03/24/21 15:09 4 mg ONETIME ONE Administration Sodium Chloride 10 ml 03/24/21 14:58 03/24/21 15:37 Sodium Chloride 0.9% 10 Ml Syringe FLUSH 10 ml ASDIRECTED PRN Administration Keep Vein Open - Re-Assessments/Exams Free Text/Narrative Re-Assessment/Exam: Hematology significant for BUN 22, creatinine 1.3, CRP 1.6. Urinalysis shows 3+ occult blood and 50-75 RBCs. No evidence of infection. CT scan shows a 6 mm obstructing stone within the distal right ureter located close to the UVJ. Patient's pain has resolved at this point. I will send prescriptions for hydrocodone with Tylenol, Zofran, and Flomax. She will also go home with a urine strainer. Discussed that if she does not pass the stone in the next week, she should follow-up with urology. I will send referral to Dr. Huerta. Discussed return precautions. Discharge instructions as documented. Departure - Departure Time of Disposition: 16:24 Disposition: Home, Self-Care 01 Condition: Good Clinical Impression: Ureteric stone - Discharge Information *PRESCRIPTION DRUG MONITORING PROGRAM REVIEWED*: Yes *COPY OF PRESCRIPTION DRUG MONITORING REPORT IN PATIENT DENY: No Prescriptions: Tamsulosin [Tamsulosin 24 Hr] 0.4 mg PO DAILY #30 cap.er Hydrocodone/Acetaminophen [Hydrocodone-Acetamin 5-325 mg] 1 each PO Q4H PRN #12 tablet PRN Reason: Pain Ondansetron [Zofran ODT] 4 mg PO Q6H PRN #10 tab.dis PRN Reason: Nausea/Vomiting Instructions: Kidney Stones, [id number] Referrals: Kathy Dobson MD [Primary Care Provider] - Raheel Huerta MD [Ordering Only Provider] - Forms: ED Department Discharge Additional Instructions: You were seen in the emergency department today for right-sided flank pain. Work-up included blood work, urinalysis, and CT scan. Results of your work-up indicate that you have a 6 mm obstructing kidney stone in your right ureter. While in ER, you received IV fluids, pain medications and nausea medications. You have been sent home with a urine strainer. Recommend straining your urine each time that you go. Take ibuprofen routinely for the next few days. For pain not relieved by this, a prescription for hydrocodone with Tylenol has been provided. You have also been provided a prescription of Zofran for nausea. If you fail to pass the stone in a week, recommend that you follow-up with urology. Referral has been sent to Dr. Huerta. If you develop fever or any other new or worsening symptoms of concern, please return to the emergency department for reevaluation. Sepsis Event Note (ED) - Evaluation Sepsis Screening Result: No Definite Risk - Focused Exam Vital Signs: Vital Signs Temp Pulse Resp BP Pulse Ox 03/24/21 14:48 97.5 F 73 16 156/63 H 98 - My Orders Last 24 Hours: My Active Orders 03/24/21 14:58 Peripheral IV Insertion Adult [OM.PC] Stat - Assessment/Plan Last 24 Hours: My Active Orders 03/24/21 14:58 Peripheral IV Insertion Adult [OM.PC] Stat
--- NOTE | 2021-03-24 16:15 | CT ---
CT abdomen and pelvis Technique: Multiple axial sections were obtained from above the dome of the diaphragm inferiorly to the pubic symphysis. Study was performed as a ureteral stone protocol. Reconstructed coronal and sagittal images were also obtained. Findings: Right ureter is mildly prominent. This extends into the pelvis. There appears to be an obstructing stone located near the UVJ measuring 6 mm compatible with an obstructing calculus. Left ureter shows no abnormal calcifications. Left kidney shows a small nonobstructing calculus. Right kidney also shows a small nonobstructing calculus. Visualized lung bases show nothing acute. Noncontrast appearance of the liver shows no focal abnormality. Gallbladder contains no calcified gallstones. Spleen size is normal. Pancreas shows no discrete abnormality. Abdominal aorta shows atherosclerotic calcification without aneurysm. Atherosclerotic calcification continues into the iliac vessels. No retroperitoneal adenopathy is seen. Small fat-containing umbilical hernia is noted. No pelvic mass or adenopathy is seen. Appendix is seen which is normal in size. Bone window settings were reviewed which show scattered degenerative change within the spine. Mild degenerative change is noted within both hips as well as vacuum phenomenon within both sacroiliac joints. Impression: 1. 6 mm obstructing stone within the distal right ureter located close to the UVJ. 2. Small nonobstructing calculus seen within each kidney. 3. Degenerative change scattered within the spine, both hips and sacroiliac joints. Diagnostic code #3
== END 2021-03-24 17:31 | disposition home or self-care (01) ==
LOC: JD.ED 14:39
DX: N20.2 Calculus of kidney with calculus of ureter (principal); E66.9 Obesity, unspecified; Z68.32 Body mass index [BMI] 32.0-32.9, adult; Z72.0 Tobacco use
CPT/HCPCS: 36415; 74176; 80053; 81001; 85025; 86140; 96374; 96375; 99284; J1170; J1885; J2405; J7030

== ENCOUNTER 2021-03-24 20:38 | Emergency (ER) | payer BC ==
[2021-03-24] MEDS ORDERED: HYDROmorphone 1 MG/ML Syringe IM ONE (20:56)
[2021-03-24] MEDS ORDERED: Ketorolac 30 MG/ML SDV IM ONE (20:57)
[2021-03-24] MEDS ORDERED: Ondansetron 4 MG Tab.DIS PO ONE (20:58)
[2021-03-24 21:00] VITALS: BP 135/96; PULSE 56
--- NOTE | 2021-03-24 21:05 | EDM.PDOC ---
ED HPI GENERAL MEDICAL PROBLEM - General Chief Complaint: Flank Pain Stated Complaint: RIGHT SIDE PAIN Time Seen by Provider: 03/24/21 20:48 Source of Information: Reports: Patient, Family, RN Notes Reviewed History Limitations: Reports: No Limitations - History of Present Illness INITIAL COMMENTS - FREE TEXT/NARRATIVE: Patient is a 61-year-old female presenting to the emergency department with complaints of right sided flank pain. She was discharged from this emergency department at approximately 1630 with a diagnosis of right-sided kidney stone. She was discharged home with prescriptions for Flomax, hydrocodone with Tylenol, and Zofran. Reports that she went home and laid down for a while. Upon waking, the pain had returned. She took a Zofran and about 5 minutes later took one of her hydrocodone with Tylenol. She vomited it up. She reports that she has not eaten anything since lunch today. Treatments SENIOR SECURITY ARCHITECT: Reports: Other (see below) Other Treatments SENIOR SECURITY ARCHITECT: hydrocodone, zofran Right Flank Pain Score (Numeric/FACES): 10 - Related Data Allergies Allergy/AdvReac Type Severity Reaction Status Date / Time No Known Allergies Allergy Verified 03/24/21 21:00 Home Meds: Home Meds predniSONE 20 mg PO Q24H #6 tab 02/19/20 [Rx] Hydrocodone/Acetaminophen [Hydrocodone-Acetamin 5-325 mg] 1 each PO Q4H PRN #12 tablet 03/24/21 [Rx] Ondansetron [Zofran ODT] 4 mg PO Q6H PRN #10 tab.dis 03/24/21 [Rx] Tamsulosin [Tamsulosin 24 Hr] 0.4 mg PO DAILY #30 cap.er 03/24/21 [Rx] Past Medical History HEENT History: Reports: Impaired Vision Cardiovascular History: Reports: High Cholesterol Gastrointestinal History: Reports: Bowel Obstruction, Chronic Constipation, GERD Genitourinary History: Reports: Renal Calculus 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 ED EXAM, RENAL/ - Physical Exam Exam: See Below Exam Limited By: No Limitations General Appearance: Alert, WD/WN, No Apparent Distress Respiratory/Chest: No Respiratory Distress, Lungs Clear, Normal Breath Sounds, No Accessory Muscle Use, Chest Non-Tender Cardiovascular: Normal Peripheral Pulses, Regular Rate, Rhythm, No Edema, No Gallop, No JVD, No Murmur, No Rub GI/Abdominal: Normal Bowel Sounds, Soft, Non-Tender, No Organomegaly, No Distention, No Abnormal Bruit, No Mass Back Exam: Normal Inspection, Full Range of Motion, CVA Tenderness (R). No: CVA Tenderness (L) Neurological: Alert, Oriented, CN II-XII Intact, Normal Cognition, Normal Gait, Normal Reflexes, No Motor/Sensory Deficits Psychiatric: Normal Affect, Normal Mood Course - Vital Signs Last Recorded V/S: Last Vital Signs Temp 97 F 03/24/21 20:50 Pulse 56 L 03/24/21 20:50 Resp 18 03/24/21 20:50 BP 135/96 H 03/24/21 20:50 Pulse Ox 96 03/24/21 20:50 - Orders/Labs/Meds Meds: Medications Discontinued Medications Generic Name Dose Route Start Last Admin Trade Name Stephanq PRN Reason Stop Dose Admin Hydrocodone Bitart/Acetaminophen 1 tab 03/24/21 22:01 03/24/21 22:20 Acetaminophen/Hydrocodone 325-5 Mg Tab PO 03/24/21 22:02 1 tab ONETIME ONE Administration Hydromorphone HCl 1 mg 03/24/21 20:56 03/24/21 21:20 Hydromorphone 1 Mg/Ml Syringe IM 03/24/21 20:57 1 mg ONETIME ONE Administration Ketorolac Tromethamine 30 mg 03/24/21 20:57 03/24/21 21:20 Ketorolac 30 Mg/Ml Sdv IM 03/24/21 20:58 30 mg ONETIME ONE Administration Ondansetron HCl 4 mg 03/24/21 20:58 03/24/21 21:20 Ondansetron 4 Mg Tab.Dis PO 03/24/21 20:59 4 mg ONETIME ONE Administration - Re-Assessments/Exams Free Text/Narrative Re-Assessment/Exam: Patient is a 61-year-old female returning to the emergency department with complaints of right flank pain with a known right-sided kidney stone. She vomited up her hydrocodone with Tylenol prior to coming to ER. Ordered Dilaudid 1 mg IM and Toradol 30 mg IM. We will give her Zofran ODT 4 mg 03/24/21 22:00 Patient's pain and nausea have improved. She will eat some crackers and then I will give her a hydrocodone with Tylenol. Patient's friend informed me that she realized that she gave the patient a Flomax instead of Zofran for her nausea prior to coming to the ER. 03/24/21 22:42 Patient has kept the hydrocodone with Tylenol down without vomiting. Her pain is better. She would like to go home and sleep. We will discharge her home. Discussed return precautions. Discharge instructions as documented. Departure - Departure Time of Disposition: 22:42 Disposition: Home, Self-Care 01 Condition: Good Clinical Impression: Renal colic - Discharge Information *PRESCRIPTION DRUG MONITORING PROGRAM REVIEWED*: No *COPY OF PRESCRIPTION DRUG MONITORING REPORT IN PATIENT DENY: No Instructions: Renal Colic, [id number] Referrals: Kathy Dobson MD [Primary Care Provider] - Forms: ED Department Discharge Additional Instructions: You were seen in the emergency department today for recurrence of your right- sided flank pain with vomiting. While in the ER, you received injections of pain medications and nausea medication. This did improve your symptoms. You were able to keep down the hydrocodone with Tylenol. Recommend that you go home and rest. If your pain begins to return, you may take another hydrocodone with Tylenol, but do not exceed 2 tablets every 4 hours. Take ibuprofen routinely but not on an empty stomach. Use your Zofran as prescribed for nausea and vomiting. Return to the ER as needed. Sepsis Event Note (ED) - Evaluation Sepsis Screening Result: No Definite Risk - Focused Exam Vital Signs: Vital Signs Temp Pulse Resp BP Pulse Ox 03/24/21 20:50 97 F 56 L 18 135/96 H 96
[2021-03-24] MEDS ORDERED: Acetaminophen/HYDROcodone 325-5 MG Tab PO ONE (22:01)
== END 2021-03-24 23:10 | disposition home or self-care (01) ==
LOC: JD.ED 20:38
DX: N23 Unspecified renal colic (principal); E78.00 Pure hypercholesterolemia, unspecified; E66.9 Obesity, unspecified; Z68.30 Body mass index [BMI] 30.0-30.9, adult
CPT/HCPCS: 96372; 99283; A9270; J1170; J1885

== ENCOUNTER 2022-10-12 12:19 | Day surgery (SDC) | payer BC ==
[~2022-10-12 12:19] MED LIST: Cefuroxime 10 MG/ML SYRINGE EYELF SCH; Lidocaine 1% PF 2 ML SDV INJECT SCH
[2022-10-12] MEDS: Polymyxin B/Trimethoprim 10 ML Bottle EYELF SCH ×4 (12:29→14:17)
[2022-10-12] MEDS: Brimonidine 0.2% Ophth Soln 5 ML Bottle EYELF SCH ×4 (12:34→14:17)
[2022-10-12] MEDS: Phenylephrine 2.5% Ophth Soln 2 ML Bot EYELF SCH ×5 (12:41→13:55)
[2022-10-12] MEDS: Tropicamide 1% Ophth Soln 15 ML Bottle EYELF SCH ×4 (12:46→13:18)
[2022-10-12] MEDS: Tetracaine HCl/PF 0.5% 4 ML Bottle EYEBOTH SCH ×4 (13:25→14:07)
[2022-10-12] MEDS: Pilocarpine 4% Ophth Soln 15 ML Bot EYELF SCH ×2 (14:09→14:17)
[2022-10-12 14:30] VITALS: BP 139/65; PULSE 68
== END 2022-10-12 14:28 | disposition home or self-care (01) ==
LOC: JD.SDS 12:19
PROVIDERS: ATTEND Ophthalmology
DX: H25.812 Combined forms of age-related cataract, left eye (principal); H40.051 Ocular hypertension, right eye; H02.834 Dermatochalasis of left upper eyelid; H02.831 Dermatochalasis of right upper eyelid; H16.103 Unspecified superficial keratitis, bilateral; H16.223 Keratoconjunctivitis sicca, not specified as Sjogren's, bilateral; K21.9 Gastro-esophageal reflux disease without esophagitis; E66.9 Obesity, unspecified; E78.00 Pure hypercholesterolemia, unspecified; Z68.31 Body mass index [BMI] 31.0-31.9, adult; Z98.890 Other specified postprocedural states; Z79.899 Other long term (current) drug therapy; Z88.5 Allergy status to narcotic agent; Z88.1 Allergy status to other antibiotic agents; Z96.1 Presence of intraocular lens; Z90.710 Acquired absence of both cervix and uterus
CPT/HCPCS: 66984; A9270; C1780; J3490

== ENCOUNTER 2023-10-29 08:00 | Day surgery (SDC) | payer BC ==
[~2023-10-29 08:00] MED LIST changes: -Cefuroxime 10 MG/ML SYRINGE EYELF SCH; +EPINEPHrine 1 MG/ML SDV ONE; +Lidocaine 1% 5 ML VIAL ONE; -Lidocaine 1% PF 2 ML SDV INJECT SCH; +Midazolam 1 MG/ML 2 ML SDV ONE; +Morphine 8 MG, EPINEPHrine 0.3 MG, Ketorolac 30 MG, Sodium Chloride 0.9% 7.9 ML PRN; +Propofol 200 MG/20 ML SDV ONE; +Ropivacaine 0.5% 5 MG/ML 30 ML SDV ONE; +Sodium Chloride 0.9% 10 ML Syringe FLUSH PRN; +Sodium Chloride 0.9% 10 ML Syringe FLUSH SCH; +ceFAZolin 2 GM Vial ONE; +fentaNYL 100 MCG/2 ML SDV ONE
[2023-10-29] MEDS ORDERED: Lactated Ringers 1,000 ML ONE (08:19)
[2023-10-29] MEDS: Lactated Ringers 1,000 ML IV SCH (08:25)
[2023-10-29] MEDS ORDERED: fentaNYL 100 MCG/2 ML SDV IVPUSH PRN (08:26)
[2023-10-29] MEDS ORDERED: HYDROmorphone 0.5 MG/0.5 ML Syringe IVPUSH PRN (08:26)
[2023-10-29] MEDS ORDERED: ePHEDrine 50 MG/ML SDV ONE (09:56)
[2023-10-29] MEDS ORDERED: Dexamethasone 4 MG/ML 5 ML MDV ONE (10:23)
[2023-10-29] MEDS: Morphine 8 MG, EPINEPHrine 0.3 MG, Cefuroxime 750 MG, Ketorolac 30 MG, Sodium Chloride ... PRN (10:26)
[2023-10-29] MEDS: Tranexamic Acid 1,000 MG/10 ML Vial ONE (10:26)
[2023-10-29] MEDS: Vancomycin 1 GM SDV ONE (10:26)
[2023-10-29] MEDS: Triamcinolone Acetonide 40 MG/ML 1 ML SDV ONE (10:26)
[2023-10-29] MEDS: Bupivacaine 0.25% 10 ML SDV ONE (10:27)
[2023-10-29] MEDS ORDERED: Ketorolac 30 MG/ML SDV ONE (10:58)
[2023-10-29] MEDS: Ondansetron 4 MG/2 ML SDV IVPUSH PRN (12:45)
[2023-10-29] MEDS: oxyCODONE 5 MG Tab PO PRN (12:45)
[2023-10-29] MEDS: Clindamycin Phosphate in D5W 900 MG in Premix Bag 1 BAG IV ONE (13:22)
[2023-10-29 13:31] VITALS: BP 127/54; PULSE 75
[2023-10-29] MEDS: oxyCODONE 5 MG Tab PO ONE (14:44)
== END 2023-10-29 14:20 | disposition home or self-care (01) ==
LOC: JD.SDS 08:00
PROVIDERS: ATTEND Orthopaedic Surgery
DX: M17.0 Bilateral primary osteoarthritis of knee (principal); D50.9 Iron deficiency anemia, unspecified; K21.9 Gastro-esophageal reflux disease without esophagitis; E78.00 Pure hypercholesterolemia, unspecified; Z87.891 Personal history of nicotine dependence; Z79.899 Other long term (current) drug therapy; Z88.5 Allergy status to narcotic agent; Z88.8 Allergy status to other drugs, medicaments and biological substances
CPT/HCPCS: 0055T; 20610; 27447; 64447; 73560; 97110; 97161; A9270; C1713; C1776; J0171; J0690; J0697; J0736; J1100; J1885; J2250; J2270; J2405; J2704; J2795; J3010; J3301; J3370; J3490; J7120; 01402; J0665

== ENCOUNTER 2023-11-02 07:54 | Emergency (ER) | payer BC ==
[2023-11-02 08:16] VITALS: BP 145/60; PULSE 85
[2023-11-02 08:39] LABS: APPEARANCE,URINE CLOUDY (Clear); BILIRUBIN,URINE 1+ (Negative); COLOR,URINE YELLOW (Yellow); GLUCOSE,URINE NEGATIVE (Negative); KETONES,URINE TRACE (Negative); LEUKOCYTE ESTERASE,URINE 3+ (Negative); NITRITE,URINE NEGATIVE (Negative); OCCULT BLOOD,URINE 1+ (Negative); PROTEIN,URINE 2+ (Negative); UROBILINOGEN,URINE >=8.0 (0.2-1.0)
[2023-11-02] MEDS: Phenazopyridine 95 MG Tab PO SCH (09:02)
[2023-11-02] MEDS ORDERED: Levofloxacin 250 MG Tab PO ONE (09:15)
[2023-11-02] MEDS: Levofloxacin 500 MG Tab PO ONE (09:24)
[2023-11-02 09:29] LABS: BACTERIA,URINE FEW /hpf (FEW); EPITHELIAL CELLS,URINE 0-5 /hpf (0-5); MUCUS,URINE NOT SEEN /hpf (FEW); RBC,URINE 0-5 /hpf (0-5); WBC,URINE 30-40 /hpf (0-5)
== END 2023-11-02 09:45 | disposition home or self-care (01) ==
LOC: JD.ED 07:54
DX: N39.0 Urinary tract infection, site not specified (principal); K21.9 Gastro-esophageal reflux disease without esophagitis; E66.9 Obesity, unspecified; Z68.33 Body mass index [BMI] 33.0-33.9, adult; Z90.710 Acquired absence of both cervix and uterus; Z79.82 Long term (current) use of aspirin; Z79.899 Other long term (current) drug therapy; Z79.1 Long term (current) use of non-steroidal anti-inflammatories (NSAID); Z79.891 Long term (current) use of opiate analgesic; Z88.1 Allergy status to other antibiotic agents; Z88.5 Allergy status to narcotic agent
CPT/HCPCS: 81001; 87086; 99284; A9270

== ENCOUNTER 2024-08-19 18:01 | Emergency (ER) | payer BC ==
[2024-08-19 18:58] LABS: APPEARANCE,URINE SLT CLOUDY (Clear); BILIRUBIN,URINE 1+ (Negative); COLOR,URINE YELLOW (Yellow); GLUCOSE,URINE NEGATIVE (Negative); KETONES,URINE TRACE (Negative); LEUKOCYTE ESTERASE,URINE NEGATIVE (Negative); NITRITE,URINE NEGATIVE (Negative); OCCULT BLOOD,URINE 3+ (Negative); PH,URINE 5.5 (5.0-8.0); PROTEIN,URINE 3+ (Negative)
[2024-08-19] MEDS ORDERED: Naloxone 0.4 MG/ML SDV IVPUSH PRN ×2 (18:58→19:55)
[2024-08-19] MEDS: HYDROmorphone 0.5 MG/0.5 ML Syringe IVPUSH ONE ×2 (19:19→20:07)
[2024-08-19] MEDS: Metoclopramide 10 MG/2 ML SDV IVPUSH ONE (19:22)
[2024-08-19 19:23] LABS: BACTERIA,URINE MODERATE /hpf (FEW); MUCUS,URINE FEW /hpf (FEW); RBC,URINE TOO NUMEROUS TO CNT /hpf (0-5)
[2024-08-19] MEDS: Sodium Chloride 0.9% 1,000 ML IV ONE (19:37)
[2024-08-19 19:39] LABS: BASOPHILS ABSOLUTE AUTO 0.1 K/mm3 (0.0-0.2); BASOPHILS PERCENT AUTO 0.5 % (0.0-1.0); EOSINOPHILS ABSOLUTE AUTO 0.1 K/mm3 (0.0-0.4); EOSINOPHILS PERCENT AUTO 0.9 % (0.0-6.0); HEMATOCRIT 44.4 % (37.0-47.0); HEMOGLOBIN 14.2 gm/dl (12.0-16.0); IMMATURE GRAN ABSOLUTE AUTO 0.05 K/mm3 (0.00-0.05); IMMATURE GRAN PERCENT AUTO 0.4 % (0.0-0.4); LYMPHOCYTES ABSOLUTE AUTO 2.3 K/mm3 (1.0-4.8); LYMPHOCYTES PERCENT AUTO 16.5 % (24.0-44.0); MEAN CORPUSCULAR HEMOGLOBIN 25.6 pg (28.0-32.0); MEAN CORPUSCULAR VOLUME 80.1 fl (83.0-99.0); MEAN PLATELET VOLUME 9.7 fl (9.4-12.3); MONOCYTES ABSOLUTE AUTO 0.8 K/mm3 (0.0-0.8); MONOCYTES PERCENT AUTO 6.1 % (0.0-8.0); NEUTROPHILS ABSOLUTE AUTO 10.4 K/mm3 (1.8-7.7); NEUTROPHILS PERCENT AUTO 75.6 % (41.0-71.0); PLATELET COUNT,PLT 282 K/mm3 (150-400); RED BLOOD CELL COUNT 5.54 M/mm3 (4.10-5.30); WHITE BLOOD CELL COUNT,WBC 13.72 K/mm3 (3.9-11.3)
[2024-08-19 20:00] LABS: A/G RATIO 1.1 (1-2); ALBUMIN 3.8 g/dl (3.4-5.0); ANION GAP 15.2 (5-15); BILIRUBIN TOTAL 0.7 mg/dL (0.2-1.0); BUN/CREATININE RATIO 21.4 (14-18); C-REACTIVE PROTEIN 0.96 mg/dL (<0.30); CREATININE 1.4 mg/dL (0.55-1.02); EST CRCL DRUG DOSING (CG) 39.48 mL/min; POTASSIUM,K 4.2 mEq/L (3.5-5.1); PROTEIN TOTAL,TP 7.4 g/dl (6.4-8.2)
[2024-08-19 23:11] VITALS: BP 139/82; PULSE 68
== END 2024-08-19 21:20 | disposition home or self-care (01) ==
LOC: JD.ED 18:01
DX: N20.0 Calculus of kidney (principal); K21.9 Gastro-esophageal reflux disease without esophagitis; E66.9 Obesity, unspecified; Z68.32 Body mass index [BMI] 32.0-32.9, adult; Z86.16 Personal history of COVID-19; Z90.710 Acquired absence of both cervix and uterus; Z88.5 Allergy status to narcotic agent; Z88.1 Allergy status to other antibiotic agents; Z88.8 Allergy status to other drugs, medicaments and biological substances; Z79.899 Other long term (current) drug therapy
CPT/HCPCS: 36415; 74176; 74176-26; 80053; 81001; 83690; 85025; 86140; 96361; 96374; 96375; 96376; 99283; 99284-25; J2765; J7030

== ENCOUNTER 2024-08-23 12:56 | Emergency (ER) | payer BC ==
[2024-08-23] MEDS: Ondansetron 4 MG/2 ML SDV IVPUSH ONE (13:39)
[2024-08-23 13:40] LABS: BASOPHILS ABSOLUTE AUTO 0.1 K/mm3 (0.0-0.2); BASOPHILS PERCENT AUTO 0.5 % (0.0-1.0); EOSINOPHILS ABSOLUTE AUTO 0.1 K/mm3 (0.0-0.4); EOSINOPHILS PERCENT AUTO 0.7 % (0.0-6.0); HEMATOCRIT 46.8 % (37.0-47.0); HEMOGLOBIN 14.9 gm/dl (12.0-16.0); IMMATURE GRAN ABSOLUTE AUTO 0.05 K/mm3 (0.00-0.05); IMMATURE GRAN PERCENT AUTO 0.4 % (0.0-0.4); LYMPHOCYTES ABSOLUTE AUTO 1.7 K/mm3 (1.0-4.8); LYMPHOCYTES PERCENT AUTO 13.6 % (24.0-44.0); MEAN CORPUSCULAR HEMOGLOBIN 25.6 pg (28.0-32.0); MEAN CORPUSCULAR HGB CONC 31.8 g/dl (32.0-36.0); MEAN CORPUSCULAR VOLUME 80.3 fl (83.0-99.0); MEAN PLATELET VOLUME 9.9 fl (9.4-12.3); MONOCYTES ABSOLUTE AUTO 0.6 K/mm3 (0.0-0.8); NEUTROPHILS ABSOLUTE AUTO 9.8 K/mm3 (1.8-7.7); NEUTROPHILS PERCENT AUTO 79.8 % (41.0-71.0); PLATELET COUNT,PLT 299 K/mm3 (150-400); RED BLOOD CELL COUNT 5.83 M/mm3 (4.10-5.30)
[2024-08-23] MEDS: Ketorolac 30 MG/ML SDV IVPUSH ONE (13:41)
[2024-08-23] MEDS: HYDROmorphone 0.5 MG/0.5 ML Syringe IVPUSH ONE (13:43)
[2024-08-23] MEDS: Sodium Chloride 0.9% 10 ML Syringe FLUSH PRN (13:45)
[2024-08-23] MEDS: Sodium Chloride 0.9% 1,000 ML IV STA (13:45)
[2024-08-23 13:58] LABS: A/G RATIO 1.1 (1-2); ALBUMIN 4.2 g/dl (3.4-5.0); ANION GAP 13.2 (5-15); BILIRUBIN TOTAL 0.7 mg/dL (0.2-1.0); BUN/CREATININE RATIO 20.8 (14-18); C-REACTIVE PROTEIN 1.91 mg/dL (<0.30); CALCIUM 9.8 mg/dL (8.5-10.1); CREATININE 1.2 mg/dL (0.55-1.02); EST CRCL DRUG DOSING (CG) 46.06 mL/min; POTASSIUM,K 4.2 mEq/L (3.5-5.1); PROTEIN TOTAL,TP 7.9 g/dl (6.4-8.2)
[2024-08-23 15:10] LABS: APPEARANCE,URINE CLEAR (Clear); BILIRUBIN,URINE NEGATIVE (Negative); COLOR,URINE YELLOW (Yellow); GLUCOSE,URINE NEGATIVE (Negative); KETONES,URINE 2+ (Negative); LEUKOCYTE ESTERASE,URINE NEGATIVE (Negative); NITRITE,URINE NEGATIVE (Negative); OCCULT BLOOD,URINE 3+ (Negative); PH,URINE 5.5 (5.0-8.0); PROTEIN,URINE TRACE (Negative); UROBILINOGEN,URINE 0.2 (0.2-1.0)
[2024-08-23 15:37] LABS: BACTERIA,URINE FEW /hpf (FEW); EPITHELIAL CELLS,URINE 0-5 /hpf (0-5); MUCUS,URINE MODERATE /hpf (FEW); WBC,URINE 0-5 /hpf (0-5)
[2024-08-23] MEDS: Tamsulosin 0.4 MG Cap.ER PO ONE (16:16)
[2024-08-23] MEDS: Acetaminophen/HYDROcodone 325-5 MG Tab PO ONE (16:16)
[2024-08-23 17:40] VITALS: BP 124/55; PULSE 70
== END 2024-08-23 16:20 | disposition home or self-care (01) ==
LOC: JD.ED 12:56
DX: N20.1 Calculus of ureter (principal); K21.9 Gastro-esophageal reflux disease without esophagitis; E66.9 Obesity, unspecified; Z88.8 Allergy status to other drugs, medicaments and biological substances; Z88.1 Allergy status to other antibiotic agents; Z86.16 Personal history of COVID-19; Z90.710 Acquired absence of both cervix and uterus; Z68.31 Body mass index [BMI] 31.0-31.9, adult; Z79.899 Other long term (current) drug therapy; Z88.5 Allergy status to narcotic agent
CPT/HCPCS: 36415; 80053; 81001; 85025; 86140; 96361; 96374; 96375; 99284; A9270; J1885; J2405; J7030